=== PATIENT | female | born 1960 | race Caucasian/White ===

== ENCOUNTER → 2017-11-27 07:59 | Outpatient (CLI) | payer BC, OTHER ==
[~2017-11-27 07:59] MED LIST: FD GUARD; ZANTAC300 MG PO; [UNRECOGNIZED DRUG - OTHER]
[2017-12-11 06:39] VITALS: BMI 33.3
== END | disposition home or self-care (01) ==
LOC: D.CT 07:59
DX: R93.8 Abnormal findings on diagnostic imaging of other specified body structures (principal)

== ENCOUNTER 2017-12-11 05:31 | Outpatient (CLI) | payer BC, OTHER ==
[~2017-12-11] VITALS: Ht 165.1 cm; Wt 90.9 kg
[2017-12-11 05:46] LABS: BASOPHILS 0.5 % (0-2); EOSINOPHILS 2.1 % (0-7); HEMATOCRIT 38.2 % (36.0-48.0); HEMOGLOBIN 13.1 g/dL (12-16); IMMATURE GRANULOCYTES 1.2 % (0-5); LYMPHOCYTES 39.9 % (15-50); MCH 30.6 pg (26.0-34.0); MCHC 34.3 g/dL (31.0-37.0); MCV 89.3 fL (80.0-100.0); MEAN PLATELET VOLUME 9.8 fL (7.4-10.4); MONOCYTES 12.6 % (2-11); NEUTROPHILS 43.7 % (40-80); PLATELET COUNT 187 10x3/uL (130-400); RBC 4.28 10x6/uL (4.00-5.40); WBC 4.2 10x3/uL (4.8-10.8)
[2017-12-11 06:00] LABS: APTT 24.8 SECONDS (22.8-39.4); INR 0.97 (0.85-1.17); PROTIME 12.5 SECONDS (11.6-15.0)
[2017-12-11 06:04] LABS: ANION GAP 12.3 mmol/L (8-16); CALCIUM 8.9 mg/dL (8.5-10.1); CARBON DIOXIDE 26.9 mmol/L (21.0-32.0); CREATININE - SERUM 0.9 mg/dL (0.6-1.3); POTASSIUM - SERUM 4.2 mmol/L (3.5-5.1)
[2017-12-11] MEDS ORDERED: FD GUARD (06:25)
[2017-12-11] MEDS ORDERED: ZANTAC300 MG PO (06:25)
[2017-12-11] MEDS ORDERED: [UNRECOGNIZED DRUG - OTHER] (06:26)
[2017-12-11 06:39] VITALS: Ht 165.1 cm; Wt 90.9 kg
[2017-12-11 10:09] LABS: PROTEIN - BODY FLUID 1.5 G/DL
== END 2017-12-11 11:10 | disposition home or self-care (01) ==
LOC: D.SP 05:31
PROVIDERS: Radiology Diagnostic Radiology
DX: K76.89 Other specified diseases of liver (principal); Z01.812 Encounter for preprocedural laboratory examination

== ENCOUNTER → 2018-03-29 08:25 | Outpatient (CLI) | payer BC, OTHER ==
[2017-12-11 06:39] VITALS: BMI 33.3
[2018-03-29 09:08] LABS: ALBUMIN 3.3 g/dL (3.4-5.0); BILIRUBIN - DIRECT 0.11 mg/dL (0.00-0.30); BILIRUBIN - INDIRECT 0.07 mg/dL (0.00-1.00); BILIRUBIN - TOTAL 0.18 mg/dL (0.2-1.3); PROTEIN - SERUM 7.4 g/dL (6.4-8.2)
== END | disposition home or self-care (01) ==
LOC: D.LAB 08:25 → D.RAD 09:00 → D.LAB 09:00 → D.US 09:30
PROVIDERS: Internal Medicine Gastroenterology
DX: K21.9 Gastro-esophageal reflux disease without esophagitis (principal); R11.2 Nausea with vomiting, unspecified; R10.11 Right upper quadrant pain; K76.89 Other specified diseases of liver

== ENCOUNTER → 2018-10-16 07:45 | Outpatient (CLI) | payer BC, OTHER ==
[2017-12-11 06:39] VITALS: BMI 33.3
[2018-10-16 08:31] LABS: ALBUMIN 3.6 g/dL (3.4-5.0); BILIRUBIN - DIRECT 0.09 mg/dL (0.00-0.30); BILIRUBIN - INDIRECT 0.28 mg/dL (0.00-1.00); BILIRUBIN - TOTAL 0.37 mg/dL (0.2-1.3); PROTEIN - SERUM 7.9 g/dL (6.4-8.2)
== END | disposition home or self-care (01) ==
LOC: D.US 07:45
PROVIDERS: ATTEND Internal Medicine Gastroenterology
DX: K76.0 Fatty (change of) liver, not elsewhere classified (principal)

== ENCOUNTER → 2018-11-22 07:21 | Outpatient (CLI) | payer BC, OTHER ==
[2017-12-11 06:39] VITALS: BMI 33.3
--- NOTE | 2018-11-22 08:45 | NUR ---
C/O ITCHING IN THROAT, NO DYSPNEA OR SOB. TWO SMALL HIVES NOTED TO LEFT ABD AREA. 50 MG BENADRYL IV GIVEN PER DR NARAYAN'S ORDER. PT IMMEDIATELY SAID THROAT QUIT ITCHING. SITTING IN CHAIR WITH MRI TECHS MONITORING FOR 30 MIN.
== END | disposition home or self-care (01) ==
LOC: D.MRI 07:21
PROVIDERS: ATTEND Internal Medicine Gastroenterology
DX: K76.89 Other specified diseases of liver (principal); R93.2 Abnormal findings on diagnostic imaging of liver and biliary tract